=== PATIENT | female | born 2000 | race Two or more races ===

== ENCOUNTER 2023-05-11 09:58 | Emergency (ER) | payer OTHER ==
--- NOTE | 2023-05-11 10:55 | ED Physician Documentation ---
PD HPI HEADACHE - Stated complaint Stated Complaint: SWOLLEN LEGS - Chief complaint Chief Complaint: General - History obtained from History obtained from: Patient - History of Present Illness Timing - onset: How many weeks ago (1-2) Timing - duration: Weeks (1-2) Timing - details: Gradual onset, Still present Worst headache ever?: No: Worst headache ever? Location: Front, Global Quality: Throbbing, Aching Associated symptoms: Other (she has noted gradual edema in both legs and some generally all over (fingers, trunk).). No: Fever, Stiff neck, Nausea, Vomiting Improved by: Rest Worsened by: Other (activity) Contributing factors: Other (history of lupus and lupus nephritis. Has noted some increase joint pains c/w lupus flaring the past week or so. [facility] moved recently [facility] [place] [facility] to Nephrology and Rheumatology but not gone through yet. Has providers at [place].). No: Anticoagulated, Recent illness Similar symptoms before: Has not had sx before (has not had the edema in the past.) Recently seen: Not recently seen Review of Systems Constitutional: denies: Fever, Chills Nose: denies: Rhinorrhea / runny nose, Congestion Throat: denies: Sore throat Respiratory: denies: Cough GI: reports: Nausea. denies: Abdominal Pain, Vomiting, Diarrhea : denies: Dysuria Musculoskeletal: reports: Extremity swelling (general edema but most notable in lower legs. Did have plane flight 3 weeks ago from [place] to the [facility].) Neurologic: reports: Generalized weakness. denies: Focal weakness, Numbness PD PAST MEDICAL HISTORY - Past Medical History Cardiovascular: None (no prior HTN diagnosis. ) Respiratory: None Neuro: None Endocrine/Autoimmune: None : None Musculoskeletal: Other (lupus arthritis and nephritis (with proteinuria in the past. has had kidney biopsy in past couple of years with Dx of nephritis).) - Present Medications Home Medications: Ambulatory Orders Medication Instructions Recorded Confirmed Furosemide [Lasix] 40 mg PO DAILY #7 tablet 05/11/23 Voclosporin [Lupkynis] 7.9 mg PO BID 05/11/23 05/11/23 lisinopriL [Lisinopril] 20 mg PO DAILY #30 tablet 05/11/23 - Allergies Allergies/Adverse Reactions: Allergies Allergy/AdvReac Type Severity Reaction Status Date / Time No Known Drug Allergies Allergy Verified 05/11/23 10:11 PD ED PE NORMAL - Vitals Vital signs reviewed: Yes - General General: Alert and oriented X 3, No acute distress, Well developed/nourished - Neck Neck: Supple, no meningeal sign, No adenopathy - Cardiac Cardiac: No murmur, No rub, Other (heart sounds not muffled.). No: RRR (tachycardic initially, improved on recheck. BP remained elevated on repeat eval. Not severely elevated but HTN). ) - Respiratory Respiratory: Clear bilaterally - Abdomen Abdomen: Soft, Non tender - Derm Derm: Normal color, Warm and dry - Extremities Extremities: No calf tenderness / cord, Other (2+ edema in both lower legs. Mild edema noted fingers. Not notable in face. Lungs clear and heart sounds crisp.) - Neuro Neuro: Alert and oriented X 3, No motor deficit, Normal speech Results - Vitals Vitals: Vital Signs - 24 hr 05/11/23 05/11/23 13:21 14:01 Heart Rate 89 84 Respiratory 16 15 Rate Blood Pressure 164/115 H 151/107 H O2 Saturation 100 99 Oxygen O2 Source Room air - Labs Labs: Laboratory Tests 05/11/23 05/11/23 05/11/23 11:31 11:51 11:51 WBC 5.2 RBC 3.39 L Hgb 9.9 L Hct 29.6 L MCV 87.3 MCH 29.2 MCHC 33.4 RDW 11.7 L Plt Count 208 MPV 9.7 Neut # (Auto) 4.0 Lymph # (Auto) 0.7 L [place] # (Auto) 0.6 Eos # (Auto) 0.0 Baso # (Auto) 0.0 Absolute Nucleated RBC 0.00 Nucleated RBC % 0.0 ESR Sodium 138 Potassium 5.2 H Chloride 111 Carbon Dioxide 25 Anion Gap 2.0 L BUN 25 H Creatinine 1.2 Estimated GFR (MDRD) 56 L Glucose 93 Calcium 8.2 L Magnesium 2.2 Total Bilirubin 0.3 AST 14 ALT 9 L Alkaline Phosphatase 54 C-Reactive Protein 2.7 Total Protein 4.8 L Albumin 2.2 L Globulin 2.6 Albumin/Globulin Ratio 0.8 L Lipase 9 L Urine Color Urine Clarity Urine pH Ur Specific [place] Urine Protein Urine Glucose (UA) Urine Ketones Urine Occult Blood Urine Nitrite Urine Bilirubin Urine Urobilinogen Ur Leukocyte Esterase Urine RBC Urine WBC Ur Squamous Epith Cells Urine Bacteria Urine Casts Ur Microscopic Review Urine Culture Comments Urine Creatinine Ur Total Protein Timed Protein/Creatinin Ratio Urine HCG, Qual Complement C3 43 L Complement C4 4 L 05/11/23 05/11/23 05/11/23 11:51 12:36 12:36 WBC RBC Hgb Hct MCV MCH MCHC RDW Plt Count MPV Neut # (Auto) Lymph # (Auto) [place] # (Auto) Eos # (Auto) Baso # (Auto) Absolute Nucleated RBC Nucleated RBC % ESR 77 H Sodium Potassium Chloride Carbon Dioxide Anion Gap BUN Creatinine Estimated GFR (MDRD) Glucose Calcium Magnesium Total Bilirubin AST ALT Alkaline Phosphatase C-Reactive Protein Total Protein Albumin Globulin Albumin/Globulin Ratio Lipase Urine Color YELLOW Urine Clarity SL. CLOUDY Urine pH 6.0 Ur Specific [place] 1.015 Urine Protein >=300 H Urine Glucose (UA) NEGATIVE Urine Ketones NEGATIVE Urine Occult Blood LARGE H Urine Nitrite NEGATIVE Urine Bilirubin NEGATIVE Urine Urobilinogen 0.2 (NORMAL) Ur Leukocyte Esterase NEGATIVE Urine RBC 6-10 H Urine WBC 6-10 H Ur Squamous Epith Cells MOD Squamous H Urine Bacteria Moderate H Urine Casts 0-2 Waxy Casts Ur Microscopic Review INDICATED Urine Culture Comments NOT INDICATED Urine Creatinine 100.8 Ur Total Protein Timed 881 Protein/Creatinin Ratio 8.7 H Urine HCG, Qual NEGATIVE Complement C3 Complement C4 - Rads (name of study) duplex venous both legs Relevant Findings:: Final report received, Other ([employer] tech says no DVTs.) PD Medical Decision Making - ED course Complexity details: reviewed results, considered differential (edema both legs with recent travel and history of lupus. US to ensure no DVT. Does have history of nephritis/proteinuria, so consider now having symptomatic nephritic symptoms. ), d/w patient, d/w senior [employer] consultant (Dr. Harper, neprhology at [facility], aircraft electronics technical officer. He will try to see the patient in office in next few days. For her to call for appt. Directed some other labs to add on. Meds to start Lasix and Lisinopril. He suggested holding steroid for now. (I had given a dose of steroids presuming the lupus flare).) Reviewed Lab Results: Pt does have significant protein and blood in urine without UTI. C/W nephritic syndrome and can account for symptoms presuming has hit the "tipping point" on low albumin/protein serum. She gave urine sample prior to meds given, so the urine protein/creatinine ratio was from original urine sample. Social Determinants of Health: recently moved here few weeks ago. Does not have specialists in area as yet. She needs expidited follow up for acute flare of her problems. Departure - Departure Disposition: 01 Home, Self Care Clinical Impression: Extremity edema, Lupus nephritis, Nephritic syndrome, Hypertension, Mild generalized edema Condition: Stable Record reviewed to determine appropriate education?: Yes Follow-Up: Pako Harper MD [Physician No Access] - Prescriptions: Furosemide [Lasix] 40 mg PO DAILY #7 tablet lisinopriL [Lisinopril] 20 mg PO DAILY #30 tablet Comments: Your ultrasound does not show any signs of blood clots or abnormal blood flow in the legs. Your blood tests are showing slight impaired kidney function. You do have a low protein and albumin in your bloodstream and showing a large amount of protein in your urine along with some blood. I believe the swelling in your legs is related to the low protein in your bloodstream therefore not holding the fluid within the blood vessels. I talked with a senior interaction designer/kidney specialist in [place] ([facility] nephrology) who suggested starting a diuretic Lasix to help with some of the swelling and get rid of excess fluid. Also to start a blood pressure medicine called lisinopril. Continue with your current usual lupus medication. He did not suggest adding steroids at this time but would want a close follow-up with the nephrology over the next several days. I provided the phone number for the [facility] nephrology group. Call them Saturday for an appointment over the next few days. You may need to contact your primary care for an expedited referral. Your blood count actually did show some anemia with a hemoglobin level of 9.9. This is likely relates to a spilling of some blood in your urine over a longer period of time. This all would result from the inflammation of the kidneys related to your lupus (lupus nephritis). I sent your prescriptions to [facility] pharmacy in [place]. Forms: PCP List Discharge Date/Time: 05/11/23 15:42
[2023-05-11 12:16] LABS: BASOPHILS % (AUTO) 0.2 %; EOSINOPHILS % (AUTO) 0.4 %; HCT - HEMATOCRIT 29.6 % (37.0-47.0); HGB - HEMOGLOBIN 9.9 g/dL (12.0-16.0); LYMPHOCYTES # (AUTO) 0.7 10^3/uL (1.5-3.5); LYMPHOCYTES % (AUTO) 12.4 %; MEAN CORPUSCULAR HEMOGLOBIN 29.2 pg (27.0-31.0); MEAN CORPUSCULAR HGB CONC 33.4 g/dL (32.0-36.0); MEAN CORPUSCULAR VOLUME 87.3 fL (81.0-99.0); MEAN PLATELET VOLUME 9.7 fL (7.9-10.8); MONOCYTES # (AUTO) 0.6 10^3/uL (0.0-1.0); MONOCYTES % (AUTO) 10.7 %; NEUTROPHILS % (AUTO) 75.9 %; PLT - PLATELET COUNT 208 10^3/uL (130-450); RED BLOOD COUNT 3.39 10^6/uL (4.20-5.40); RED CELL DISTRIBUTION WIDTH 11.7 % (12.0-15.0); WHITE BLOOD COUNT 5.2 x10^3/uL (4.8-10.8)
[2023-05-11 12:28] LABS: ALBUMIN 2.2 g/dL (3.2-5.5); ALBUMIN/GLOBULIN RATIO 0.8 (1.0-2.2); BILIRUBIN,TOTAL 0.3 mg/dL (0.2-1.0); CALCIUM 8.2 mg/dL (8.5-10.3); CREATININE 1.2 mg/dL (0.6-1.3); CRP - C-REACTIVE PROTEIN 2.7 mg/dL (<0.5); MAGNESIUM 2.2 mg/dL (1.7-2.3); POTASSIUM 5.2 mmol/L (3.5-4.5); TOTAL PROTEIN 4.8 g/dL (6.4-8.9)
[2023-05-11 12:49] LABS: BILIRUBIN,URINE NEGATIVE (NEGATIVE); GLUCOSE, URINE (UA) NEGATIVE (NEGATIVE); KETONES,URINE (UA) NEGATIVE (NEGATIVE); LEUKOCYTE ESTERASE, URINE NEGATIVE (NEGATIVE); NITRITE,URINE NEGATIVE (NEGATIVE); OCCULT BLOOD,URINE LARGE (NEGATIVE); PROTEIN,URINE >=300 mg/dL (NEGATIVE); UROBILINOGEN,URINE 0.2 (NORMAL) E.U./dL (NORMAL)
[2023-05-11 12:51] LABS: CLARITY,URINE SL. CLOUDY (CLEAR)
[2023-05-11 12:52] LABS: HCG UR QUAL NEGATIVE
[2023-05-11 13:01] LABS: BACTERIA,URINE Moderate /HPF (None Seen); SQUAMOUS EPITHELIAL CELL,UR MOD Squamous (<= Few)
[2023-05-11] MEDS ORDERED: FUROSEMIDE 20 MG TABLET PO STA (13:08)
[2023-05-11] MEDS ORDERED: dexAMETHasone 4 MG TABLET PO STA (13:09)
[2023-05-11] MEDS ORDERED: lisinopriL 5 MG TABLET PO STA (13:09)
[2023-05-11 13:37] LABS: CREATININE,URINE 100.8 mg/dL
[2023-05-11 13:47] LABS: PROTEIN/CREATININE RATIO,URINE 8.7 (<=0.2)
[2023-05-11 14:03] VITALS: BP 151/107
--- NOTE | 2023-05-11 15:59 | Ultrasound Report ---
PROCEDURE: Duplex Ext Veins Bilateral INDICATIONS: Bilateral lower extremity swelling, history of recent travel TECHNIQUE: Real-time imaging, as well as color and pulse Doppler interrogation, were performed of the deep veins of both legs from the inguinal ligament to the popliteal fossa. COMPARISON: None FINDINGS: The deep veins are normally compressible, and free of intraluminal thrombus. Color and pu lse Doppler demonstrate normal phasic intravascular flow. There is normal augmentation response to d istal compression maneuver. Incidental note is made of bilateral popliteal cysts IMPRESSION: No evidence of deep venous thrombosis, bilaterally. Incidental bilateral popliteal cysts Reviewed by: Karthik Saul MD on 05/11/2023 2:58 PM AKROSETTE Approved by: Karthik Saul MD on 05/11/2023 2:58 PM AKDT Station ID: [id number]
[2023-05-12 08:07] LABS: COMPLEMENT C3 43 mg/dL (82-167); COMPLEMENT C4 4 mg/dL (12-38)
[2023-05-13 16:07] LABS: ANTI-DNA (DS) AB QN 75 IU/mL (0-9); CENTROMERE B ANTIBODIES <0.2 AI (0.0-0.9); CHROMATIN ANTIBODIES >8.0 AI (0.0-0.9); JO-1 AB <0.2 AI (0.0-0.9); RIBOSOMAL P ANTIBODIES 0.9 AI (0.0-0.9); RNP ANTIBODIES 7.2 AI (0.0-0.9); SCLERODERMA-70 ANTIBODIES <0.2 AI (0.0-0.9); SJOGREN'S ANTI-SS-A <0.2 AI (0.0-0.9); SJOGREN'S ANTI-SS-B <0.2 AI (0.0-0.9); SMITH ANTIBODIES 4.9 AI (0.0-0.9); SMITH/RNP ANTIBODIES 3.7 AI (0.0-0.9)
== END 2023-05-11 15:42 | disposition home or self-care (01) ==
LOC: ED 09:58
DX: M32.14 Glomerular disease in systemic lupus erythematosus (principal); N04.9 Nephrotic syndrome with unspecified morphologic changes; I10 Essential (primary) hypertension; Z79.899 Other long term (current) drug therapy
CPT/HCPCS: 36415; 80053; 81001; 81025; 82570; 83516; 83690; 83735; 84156; 85025; 85651; 86140; 86160; 86225; 86235; 93970; 99284; A9270; J8540; 81003; 87086